=== PATIENT | female | born 1980 | race Caucasian/White ===

== ENCOUNTER 2018-05-14 16:34 | Emergency (ER) | payer OTHER ==
[2018-05-14 17:07] VITALS: BMI 20.3
[2018-05-14] MEDS ORDERED: IBUPROFEN 400 MG TABLET (FP) PO ONE ×2 (17:55→18:04)
[2018-05-14] MEDS ORDERED: DEXAMETHASONE LIQUID 0.5 MG/5 ML 240 ML BULK BOTTLE PO ONE (17:55)
[2018-05-14] MEDS ORDERED: DEXAMETHASONE SOD PHOSPHATE 10 MG/1 ML VIAL ONE (18:04)
[2018-05-14 18:26] LABS: BASO % 0.7 % (0-2.0); EOS % 0.5 % (0-4.5); HEMATOCRIT 39.2 % (32.4-45.2); HEMOGLOBIN 13.3 GM/dL (10.7-15.3); MCHC 33.9 g/dl (32.0-36.0); MEAN CELL VOLUME 88.5 fl (80-96); MEAN PLT VOLUME 7.9 fl (7.5-11.1); MONO % 9.5 % (3.8-10.2); NEUT % 74.3 % (42.8-82.8); PLATELET COUNT 343 K/MM3 (134-434); RBC 4.43 M/mm3 (3.60-5.2); RDW 12.7 % (11.6-15.6); WHITE BLOOD COUNT 20.8 K/mm3 (4.0-10.0)
[2018-05-14 18:55] LABS: ANISOCYTOSIS 1+; MACROCYTOSIS 1+; PLATELET ESTIMATE ADEQUATE
[2018-05-14 19:39] LABS: ANION GAP 14 MMOL/L (8-16); BLOOD UREA NITROGEN 24 mg/dL (7-18); CHLORIDE 104 mmol/L (98-107); CO2 19 mmol/L (21-32); CREATININE 1.6 mg/dL (0.55-1.3); GLUCOSE,RANDOM 78 mg/dL (74-106); SODIUM 138 mmol/L (136-145)
--- NOTE | 2018-05-14 19:40 | PDOC ---
History of Present Illness - General Chief Complaint: Cold Symptoms Stated Complaint: SORE THROAT Time Seen by Provider: 05/14/18 17:22 History Source: Patient Exam Limitations: No Limitations Past History - Past Medical History Allergies/Adverse Reactions: Allergies Allergy/AdvReac Type Severity Reaction Status Date / Time No Known Allergies Allergy Verified 05/25/11 22:48 Home Medications: Ambulatory Orders NK [No Known Home Medication] 05/14/18 COPD: No - Surgical History Gastric Stapling: No - Immunization History Immunization Up to Date: Yes - Suicide/Smoking/Psychosocial Hx Smoking Status: No Smoking History: Never smoked Years of Tobacco Use: 0 Have you smoked in the past 12 months: No Number of Cigarettes Smoked Daily: 0 Cigars Per Day: 0 Information on smoking cessation initiated: No Hx Alcohol Use: No Drug/Substance Use Hx: No Substance Use Type: None *Physical Exam - Vital Signs Last Vital Signs Temp Pulse Resp BP Pulse Ox 99.1 F 84 18 114/70 97 05/14/18 17:03 05/14/18 17:03 05/14/18 17:03 05/14/18 17:03 05/14/18 17:03 - Physical Exam HEENT: positive: Pharyngeal Erythema, Other (R tonsil appears larger than L tonsil, few exudates noted to R tonsil, no uvula deviation, no obvious CAN RUNNER noted , slight hot potato voice, no drooling). negative: Nasal Congestion, Rhinorrhea , Sinus Tenderness Respiratory/Chest: positive: Lungs Clear, Normal Breath Sounds. negative: Respiratory Distress Cardiovascular: positive: Regular Rhythm, Regular Rate, S1, S2. negative: Murmur Integumentary: positive: Normal Color Neurologic: positive: Alert, Normal Mood/Affect ED Treatment Course - LABORATORY CBC & Chemistry Diagram: 05/14/18 18:18 05/14/18 18:37 - ADDITIONAL ORDERS Additional order review: Laboratory Results 05/14/18 18:18 Urine HCG, Qual Negative 05/14/18 18:18 RBC 4.43 MCV 88.5 MCHC 33.9 RDW 12.7 MPV 7.9 Neutrophils % 74.3 Lymphocytes % 15.0 Monocytes % 9.5 Eosinophils % 0.5 Basophils % 0.7 - Medications Given in the ED: ED Medications Discontinued Medications Generic Name Dose Route Start Last Admin Trade Name Freq PRN Reason Stop Dose Admin Dexamethasone 10 mg 05/14/18 17:55 05/14/18 18:20 Decadron Liquid - PO 05/14/18 17:56 1 ml ONCE ONE Administration Ibuprofen 800 mg 05/14/18 17:55 05/14/18 18:42 Motrin - PO 05/14/18 17:56 Not Given ONCE ONE Medical Decision Making - Medical Decision Making 37 y/o F with no sig pmh presents with throat pain since 4 days ago. Saw white spots in back of throat and was concerned for strep throat. She spoke to her PCP who started her on Azithromycin. However, was not noticing much difference with the medication. She felt her throat was closing; also had few episodes of emesis yesterday. She went to urgent care yesterday, where she was tested positive for strep throat and started on Amoxicillin and also given viscous lidocaine which also was not helping. Noticed also her voice sounded different. Denies drooling, sob, fever, sob, cp. Concern for possible CAN RUNNER, though not so obvious on PE Plan to send for CT soft tissue neck to r/o CAN RUNNER 05/14/18 19:39 Laboratory Tests 05/14/18 18:37 Potassium 2.6 L* Carbon Dioxide 19 L BUN 24 H Creatinine 1.6 H Creat Clearance w eGFR 36.68 Labs notable for marked hypokalemia 2.6, elevated BUN/Cr Likely this is due to poor PO intake and dehydration Will give 1 L of NS fluids and then send patient for CT Discussed with patient the risks of contrast induced nephropathy given her elevated BUN/Cr and patient states she understands the risks and is willing to go for CT scan. Plan was also discussed with Dr. Zamora Mg level also sent and pending Patient signed out to LILLIANA Rosales, pending hydration, CT scan and repeat labs 05/14/18 20:22 *DC/Admit/Observation/Transfer Diagnosis at time of Disposition: Throat infection - Discharge Dispostion Condition at time of disposition: Stable - Referrals Referrals: Mayra Loyola MD [Primary Care Provider] - - Patient Instructions - Post Discharge Activity
[2018-05-14 19:41] LABS: POTASSIUM 2.6 mmol/L (3.5-5.1)
[2018-05-14] MEDS ORDERED: SODIUM CHLORIDE 1,000 ML IV STA (19:45)
[2018-05-14] MEDS ORDERED: POTASSIUM CHLORIDE TABS 20 MEQ TABLET.ER (FP) PO ONE ×2 (19:49→20:42)
[2018-05-14 19:52] LABS: MAGNESIUM 2.1 mg/dL (1.8-2.4)
[2018-05-14] MEDS ORDERED: KCL 10 MEQ IVPB 10 MEQ/100 ML INFUS.BAG IVPB ONE ×2 (20:44→21:36)
[2018-05-14] MEDS: KCL 10 MEQ IVPB 10 MEQ/100 ML INFUS.BAG IVPB SCH ×3 (21:00→23:09)
--- NOTE | 2018-05-14 21:40 | PDOC ---
*Physical Exam - Vital Signs Last Vital Signs Temp Pulse Resp BP Pulse Ox 99.1 F 84 18 114/70 97 05/14/18 17:03 05/14/18 17:03 05/14/18 17:03 05/14/18 17:03 05/14/18 17:03 - Physical Exam HEENT: positive: Pharyngeal Erythema, Other (Tonsillar pillars easily identifiable. Uvula is midline. Significant swelling present to peritonsillar region.) Neck: positive: Trachea midline, Supple. negative: Stridor Respiratory/Chest: positive: Lungs Clear, Normal Breath Sounds. negative: Respiratory Distress, Accessory Muscle Use ED Treatment Course - LABORATORY CBC & Chemistry Diagram: 05/14/18 18:18 05/15/18 02:00 - ADDITIONAL ORDERS Additional order review: Laboratory Results 05/14/18 05/14/18 18:37 18:18 Sodium 138 Potassium 2.6 L* Chloride 104 Carbon Dioxide 19 L Anion Gap 14 BUN 24 H Creatinine 1.6 H Creat Clearance w eGFR 36.68 Random Glucose 78 Calcium 9.0 Magnesium 2.1 Urine HCG, Qual Negative 05/14/18 18:18 RBC 4.43 MCV 88.5 MCHC 33.9 RDW 12.7 MPV 7.9 Neutrophils % 74.3 Lymphocytes % 15.0 Monocytes % 9.5 Eosinophils % 0.5 Basophils % 0.7 - Medications Given in the ED: ED Medications Discontinued Medications Generic Name Dose Route Start Last Admin Trade Name Freq PRN Reason Stop Dose Admin Dexamethasone 10 mg 05/14/18 17:55 05/14/18 18:20 Decadron Liquid - PO 05/14/18 17:56 1 ml ONCE ONE Administration Sodium Chloride 1,000 mls @ 1,000 mls/hr 05/14/18 19:45 05/14/18 20:41 Normal Saline - IV 05/14/18 20:44 1,000 mls/hr ASDIR STA Administration Ibuprofen 800 mg 05/14/18 17:55 05/14/18 18:42 Motrin - PO 05/14/18 17:56 Not Given ONCE ONE Potassium Chloride 40 meq 05/14/18 19:49 05/14/18 21:01 K-Dur - PO 05/14/18 19:50 40 meq ONCE ONE Administration Progress Note - Progress Note Progress Note: Received signout from SARAH Walker. Briefly this is a 37-year-old woman with sore throat for one week was previous to treated with azithromycin and switch to amoxicillin once determined the patient was streptococcal positive. Patient today with worsening swelling in her throat having difficulty tolerating her own secretions and vocal changes. Laboratory testing notable for WBC 20,800 without shift, potassium 2.6, BUN 24, creatinine 1.6. Patient has been Pree consented for CAT scan with IV contrast even though patient has an elevated creatinine. Patient has received Decadron 10 mg orally is in the process of receiving IV fluids, K-Dur and potassium rider 3. CT of the soft tissues of the neck with IV contrast is pending Medical Decision Making - Medical Decision Making 05/15/18 01:37 EKG sinus rhythm with rate of 79. Normal intervals noted. Normal axis. No ST elevations, ST depressions or T-wave inversions present. CAT scan of the neck as read by imaging verification manager: 1. There is asymmetric thickening/enlargement of the lymphoid tissue of the right oropharynx centered in the right palatine tonsil consistent with inflammatory lymphoid tissue. There is no drainable fluid collection to suggest abscess at this time. There is mild prevertebral soft tissue thickening also seen. 2. The airway is patent with mild displacement of the oropharyngeal airway to the left. 3. Probable reactive cervical lymph nodes. 4. Unremarkable epiglottis. 5. Visualized lung apices are clear. Patient does report improvement of symptoms reports her voice has returned to baseline. Repeat chemistries are pending at this time. 05/15/18 02:48 Repeat potassium was 3.4 the BUN 20 and creatinine 1.2. I will discharge the patient home to follow-up with her primary doctor I will give referral for ENT should symptoms worsen. *DC/Admit/Observation/Transfer Diagnosis at time of Disposition: Strep pharyngitis, Hypokalemia, MALCOM (acute kidney injury) - Discharge Dispostion Disposition: HOME Condition at time of disposition: Fair Decision to Admit order: No - Prescriptions Prescriptions: Amox-Tr/K Cl [Augmentin - 875Mg Tablet] 1 tab PO BID #18 tablet - Referrals Referrals: Mayra Loyola MD [Primary Care Provider] - Bernard Stevens MD [Staff Physician] - - Patient Instructions Additional Instructions: Stop taking the amoxicillin your previously prescribed. Take Augmentin as prescribed. Salt water garggles. Throw away your toothbrush in 3 days and start using a new toothbrush. No sharing of drinks, utensils or toothbrushes. Take Motrin as directed by chute puller's instructions. You have been given a referral for an ENT specialist. Symptoms do not improve within the next 3 days call for an evaluation. Return to ED for worsening fevers, worsening sore throat, chest pain, shortness of breath or any other concerns. - Post Discharge Activity Forms/Work/School Notes: Back to Work
[2018-05-14 23:47] VITALS: BP 117/69; PULSE 86; TEMP 98.1
[2018-05-15 02:37] LABS: ANION GAP 8 MMOL/L (8-16); BLOOD UREA NITROGEN 20 mg/dL (7-18); CALCIUM 7.9 mg/dL (8.5-10.1); CHLORIDE 109 mmol/L (98-107); CO2 21 mmol/L (21-32); CREATININE 1.2 mg/dL (0.55-1.3); GLUCOSE,RANDOM 168 mg/dL (74-106); POTASSIUM 3.4 mmol/L (3.5-5.1); SODIUM 138 mmol/L (136-145)
--- NOTE | 2018-05-15 03:00 | PDOC ---
*Physical Exam - Vital Signs Last Vital Signs Temp Pulse Resp BP Pulse Ox 98.1 F 86 18 117/69 99 05/14/18 23:44 05/14/18 23:44 05/14/18 23:44 05/14/18 23:44 05/14/18 23:44 ED Treatment Course - LABORATORY CBC & Chemistry Diagram: 05/14/18 18:18 05/15/18 02:00 - ADDITIONAL ORDERS Additional order review: Laboratory Results 05/15/18 05/14/18 05/14/18 02:00 18:37 18:18 Sodium 138 138 Potassium 3.4 L 2.6 L* Chloride 109 H 104 Carbon Dioxide 21 19 L Anion Gap 8 14 BUN 20 H 24 H Creatinine 1.2 1.6 H Creat Clearance w eGFR 51.12 36.68 Random Glucose 168 H 78 Calcium 7.9 L 9.0 Magnesium 2.1 Urine HCG, Qual Negative 05/14/18 18:18 RBC 4.43 MCV 88.5 MCHC 33.9 RDW 12.7 MPV 7.9 Neutrophils % 74.3 Lymphocytes % 15.0 Monocytes % 9.5 Eosinophils % 0.5 Basophils % 0.7 - Medications Given in the ED: ED Medications Discontinued Medications Generic Name Dose Route Start Last Admin Trade Name Freq PRN Reason Stop Dose Admin Dexamethasone 10 mg 05/14/18 17:55 05/14/18 18:20 Decadron Liquid - PO 05/14/18 17:56 1 ml ONCE ONE Administration Potassium Chloride 10 meq in 100 mls @ 100 mls/hr 05/14/18 20:00 05/14/18 23: 09 Potassium Chloride 10 Meq Premix Ivpb - IVPB 05/14/18 22:59 100 mls/hr Q60M FERNANDO Administration Sodium Chloride 1,000 mls @ 1,000 mls/hr 05/14/18 19:45 05/14/18 20:41 Normal Saline - IV 05/14/18 20:44 1,000 mls/hr ASDIR STA Administration Ibuprofen 800 mg 05/14/18 17:55 05/14/18 18:42 Motrin - PO 05/14/18 17:56 Not Given ONCE ONE Potassium Chloride 40 meq 05/14/18 19:49 05/14/18 21:01 K-Dur - PO 05/14/18 19:50 40 meq ONCE ONE Administration Medical Decision Making - Medical Decision Making 05/15/18 02:59 Case discussed with SIGNAL FITTER Bobby Agree with assessment and plan *DC/Admit/Observation/Transfer Diagnosis at time of Disposition: Strep pharyngitis - Discharge Dispostion Disposition: HOME Condition at time of disposition: Fair - Prescriptions Prescriptions: Amox-Tr/K Cl [Augmentin - 875Mg Tablet] 1 tab PO BID #18 tablet - Referrals Referrals: Mayra Loyola MD [Primary Care Provider] - Bernard Stevens MD [Staff Physician] - - Patient Instructions Additional Instructions: Stop taking the amoxicillin your previously prescribed. Take Augmentin as prescribed. Salt water garggles. Throw away your toothbrush in 3 days and start using a new toothbrush. No sharing of drinks, utensils or toothbrushes. Take Motrin as directed by postdoctoral scholar's instructions. You have been given a referral for an ENT specialist. Symptoms do not improve within the next 3 days call for an evaluation. Return to ED for worsening fevers, worsening sore throat, chest pain, shortness of breath or any other concerns. - Post Discharge Activity Forms/Work/School Notes: Back to Work
--- NOTE | 2018-05-15 12:22 | EKG ---
Test Reason : Blood Pressure : / mmHG Vent. Rate : 079 BPM Atrial Rate : 079 BPM P-R Int : 146 ms QRS Dur : 084 ms QT Int : 378 ms P-R-T Axes : 051 073 046 degrees QTc Int : 433 ms POOR DATA QUALITY, INTERPRETATION MAY BE ADVERSELY AFFECTED NORMAL SINUS RHYTHM NORMAL ECG NO PREVIOUS ECGS AVAILABLE Confirmed by JEAN VALLE MD ([id number]) on 05/15/2018 12:22:30 PM Referred By: Confirmed By:JEAN VALLE MD
== END 2018-05-15 03:14 | disposition home or self-care (01) ==
LOC: JER 16:34 → JERFT 16:34 → JER 05-15 03:14
PROC: 3E0337Z Introduction of Electrolytic and Water Balance Substance into Peripheral Vein, Percutaneous Approach (ICD-10-PCS; principal; 2018-05-14)
PROC: 3E0337Z Introduction of Electrolytic and Water Balance Substance into Peripheral Vein, Percutaneous Approach (ICD-10-PCS; 2018-05-14)
DX: J02.9 Acute pharyngitis, unspecified (principal); E87.6 Hypokalemia
CPT/HCPCS: 36415; 70491-TC; 80048; 83735; 84703; 85025; 93005; 93010; 99282-25; J7030

== ENCOUNTER 2024-04-12 05:36 | Day surgery (SDC) | payer OTHER ==
[2024-04-09 09:59] VITALS: BMI 22.1
[2024-04-12] MEDS ORDERED: MIDAZOLAM HCL 2 MG/2 ML SINGLE DOSE VIAL ONE (10:25)
[2024-04-12] MEDS ORDERED: PROPOFOL 20 ML ONE (10:25)
[2024-04-12] MEDS ORDERED: LIDOCAINE HCL/PF 2% SDV 5ML VIAL ONE (10:42)
[2024-04-12] MEDS ORDERED: ONDANSETRON 4 MG/2 ML VIAL ONE (10:46)
[2024-04-12] MEDS ORDERED: KETOROLAC TROMETHAMINE 30 MG/1 ML VIAL ONE (10:46)
[2024-04-12] MEDS ORDERED: DEXAMETHASONE SOD PHOSPHATE 4 MG/1 ML VIAL ONE (10:46)
[2024-04-12] MEDS ORDERED: ACETAMINOPHEN INJECTION 100 ML ONE (10:48)
[2024-04-12] MEDS: ceFAZolin SODIUM 1 GM VIAL IVPB ONE (10:50)
[2024-04-12] MEDS ORDERED: ceFAZolin SODIUM 1 GM VIAL ONE (10:50)
[2024-04-12] MEDS: LACTATED RINGERS SOLUTION 1,000 ML IV SCH (11:15)
[2024-04-12] MEDS ORDERED: oxyCODONE HCL 5 MG TABLET PO PRN (11:20)
[2024-04-12] MEDS ORDERED: ONDANSETRON 4 MG/2 ML VIAL IVPUSH PRN (11:20)
[2024-04-12 13:23] VITALS: RESP 20; TEMP 97.5
[2024-04-12 13:25] VITALS: BP 107/64; PULSE 60
== END 2024-04-12 13:10 | disposition home or self-care (01) ==
LOC: JASU-SURG 05:36
PROVIDERS: ATTEND Obstetrics & Gynecology
PROC: 0UB98ZZ Excision of Uterus, Via Natural or Artificial Opening Endoscopic (ICD-10-PCS; principal; 2024-04-12 10:00)
DX: N84.0 Polyp of corpus uteri (principal); N97.9 Female infertility, unspecified
CPT/HCPCS: 81025; 88305-TC; 94760; J0131